=== PATIENT | female | born 1995 | race Caucasian/White ===

== ENCOUNTER 2018-02-27 12:39 | Outpatient (CLI) | payer OTHER | END 2018-02-27 12:47 | disposition home or self-care (01) | LOC: EKG 12:39 | DX: R07.89 Other chest pain (principal) ==

== ENCOUNTER 2018-03-06 06:00 | Day surgery (SDC) | payer OTHER ==
[2018-03-06] MEDS ORDERED: DOXYCYCLINE HY100 MG PO (12:04)
[2018-03-06] MEDS ORDERED: CODE1TAB37 PO (12:04)
== END 2018-03-06 15:05 | disposition home or self-care (01) ==
LOC: CIR.AMB 06:00
DX: D25.0 Submucous leiomyoma of uterus (principal); D26.1 Other benign neoplasm of corpus uteri

== ENCOUNTER 2020-05-23 13:30 | Inpatient (IN) | payer OTHER ==
[~2020-05-23] VITALS: Ht 152.4 cm; Wt 121.1 kg
[~2020-05-23 13:30] MED LIST: CODE1TAB37 PO; DOXYCYCLINE HY100 MG PO
[2020-05-30] MEDS ORDERED: PRENATAL TABLE1 EAC1 (10:58)
[2020-06-01] MEDS ORDERED: DOCUSATE SODIU100 MG PO (11:09)
== END 2020-06-01 12:41 | disposition home or self-care (01) | DRG 768 ==
LOC: LDR 05-30 10:28 → OB/GYN 05-30 20:38
PROVIDERS: ADMIT Obstetrics & Gynecology; ATTEND Obstetrics & Gynecology
PROC: 10E0XZZ Delivery of Products of Conception, External Approach (ICD-10-PCS; principal; 2020-05-30)
PROC: 0DQP0ZZ Repair Rectum, Open Approach (ICD-10-PCS; 2020-05-30)
PROC: 0W8NXZZ Division of Female Perineum, External Approach (ICD-10-PCS; 2020-05-30)
PROC: 4A1HXFZ Monitoring of Products of Conception, Cardiac Rhythm, External Approach (ICD-10-PCS; 2020-05-30)
DX: O70.3 Fourth degree perineal laceration during delivery (principal); Z37.0 Single live birth; O42.02 Full-term premature rupture of membranes, onset of labor within 24 hours of rupture; Z3A.38 38 weeks gestation of pregnancy; Z20.828 Contact with and (suspected) exposure to other viral communicable diseases